=== PATIENT | female | born 1985 | race Caucasian/White ===

== ENCOUNTER 2019-03-13 23:27 | Emergency (ER) | payer MEDICAID ==
[~2019-03-13] VITALS: Ht 137.2 cm; Wt 113.6 kg
[~2019-03-13 23:27] MED LIST: CEPH-571 PO
[2019-03-14] MEDS ORDERED: magnesium 2GM in 50ml NS 50 ML IV ONE
[2019-03-14] MEDS ORDERED: hydrALAZINE 20mg/ml inj. IV ONE ×3 (00:05→02:35)
[2019-03-14 00:54] LABS: URINE HCG POSITIVE (NEG)
[2019-03-14 00:56] LABS: URINE AMPHETAMINE SCREEN POSITIVE (Neg); URINE BARBITUATE SCREEN NEGATIVE (Neg); URINE BENZODIAZEPINES SCREEN NEGATIVE (Neg); URINE CANNABINOID SCREEN NEGATIVE (Neg); URINE COCAINE SCREEN NEGATIVE (Neg); URINE METHADONE SCREEN NEGATIVE (Neg); URINE OPIATE SCREEN NEGATIVE (Neg); URINE PHENCYCLIDINE SCREEN NEGATIVE (Neg)
[2019-03-14 00:59] LABS: ALANINE AMINOTRANSFERASE 21 U/L (12-78); ALBUMIN 2.3 G/DL (3.4-5.0); ALBUMIN/GLOBULIN RATIO 0.6 (1.1-1.5); ALKALINE PHOSPHATASE 207 IU/L (46-116); ANION GAP 10 (8-16); ASPARTATE AMINO TRANSFERASE 29 U/L (10-37); BILIRUBIN,TOTAL 0.6 MG/DL (0.1-1.0); BLOOD UREA NITROGEN 8 MG/DL (7-18); BUN/CREATININE RATIO 12.1 (6.6-38.0); CALCIUM 8.5 MG/DL (8.5-10.1); CHLORIDE 105 MMOL/L (99-107); CREATININE 0.66 MG/DL (0.40-0.90); GLUCOSE 88 MG/DL (70-104); POTASSIUM 3.9 MMOL/L (3.5-5.1); SODIUM 138 MMOL/L (135-145); TOTAL CARBON DIOXIDE 22.7 MMOL/L (24-32); TOTAL PROTEIN 6.4 G/DL (6.4-8.2); eGFR > 90 ML/MIN
[2019-03-14 01:01] LABS: PARTIAL THROMBOPLASTIN TIME 25 SECONDS (22-32)
[2019-03-14 01:03] LABS: CLARITY,URINE CLEAR (Clear); COLOR,URINE AMBER (Yellow); GLUCOSE, URINE NEGATIVE (Neg); KETONES,URINE TRACE mg/dl (Neg); LEUKOCYTE ESTERASE ,URINE NEGATIVE (Neg); NITRITES, URINE NEGATIVE (Neg); OCCULT BLOOD,URINE NEGATIVE (Neg); PROTEIN,URINE 100 mg/dl (Neg)
[2019-03-14 01:04] LABS: BASOPHILS % (AUTO) 0.3 % (0-1); EOSINOPHILS # (AUTO) 0.2 X10'3 (0-0.9); EOSINOPHILS % (AUTO) 1.1 % (0-6); HEMATOCRIT 26.7 % (35.0-45.0); HEMOGLOBIN 8.5 g/dl (12.0-16.0); LYMPHOCYTES # (AUTO) 1.5 X10'3 (1.1-4.8); LYMPHOCYTES % (AUTO) 10.3 % (21-51); MEAN CORPUSCULAR HEMOGLOBIN 19.6 PG (27.0-31.0); MEAN CORPUSCULAR HGB CONC 31.7 g/dL (33.0-36.5); MEAN CORPUSCULAR VOLUME 61.8 FL (78-98); MEAN PLATELET VOLUME 7.4 FL (7.4-10.4); MONOCYTES # (AUTO) 0.5 X10'3 (0-0.9); MONOCYTES % (AUTO) 3.7 % (2-12); NEUTROPHILS # (AUTO) 12.2 X10'3 (1.8-7.7); NEUTROPHILS % (AUTO) 84.6 % (42-75); PLATELET COUNT 361 X10'3 (140-440); RED BLOOD COUNT 4.32 X10'6 (4.20-5.60); RED CELL DISTRIBUTION WIDTH 18.2 % (11.5-14.5); WHITE BLOOD COUNT 14.4 X10'3 (4.5-11.0)
--- NOTE | 2019-03-14 01:20 | NUR ---
2ND PAGE AT 1:21 FOR [facility]
[2019-03-14 01:23] LABS: BETA HCG,QUANTITATIVE 70391 mIU/ml; ETHANOL < 0.010 GM/DL (0.0-0.010)
--- NOTE | 2019-03-14 01:30 | NUR ---
CALLED [facility] TO CALL [facility] DUE TO NO CALL BACK AT 01:31
[2019-03-14 01:36] LABS: UA COLLECTION TYPE CLN CATCH MIDSTREAM
[2019-03-14] MEDS ORDERED: furosemide 10 MG/1 ML 10ml inj IV ONE (01:40)
[2019-03-14 01:41] LABS: BACTERIA,URINE FEW /HPF (Neg); CAL OXALATE CRYSTALS 2+ /HPF (NEGATIVE); MUCUS STRANDS MANY /LPF (Neg); RBC,URINE NONE SEEN /HPF (0-2); SQUAMOUS EPITHELIAL CELL,UR FEW /LPF (FEW); WBC,URINE 0-4 /HPF (0-4)
[2019-03-14] MEDS ORDERED: CefTRIAXone 1000mg IM Kit (w/lidocaine diluent) IM ONE (03:15)
[2019-03-14] MEDS ORDERED: azithromycin/NS 500mg/250ml 250 ML IV ONE (03:15)
--- NOTE | 2019-03-14 04:00 | NUR ---
CALLED [facility] FOR ETA OF TRANSPORT AND WAS GIVEN APROX 1 HOUR
--- NOTE | 2019-03-14 04:13 | NUR ---
CALLED [facility] AND GAVE REPORT TO DAMIR DUMONT. SHE HAD NO FURTHER QUESTIONS AT THIS TIME.
[2019-03-14 04:26] LABS: PLATELET ESTIMATE NORMAL
[2019-03-14 04:27] LABS: ANISOCYTOSIS 2+; MICROCYTOSIS 2+
[2019-03-14 04:29] VITALS: BP 114/102
== END 2019-03-14 04:33 | disposition short-term general hospital (02) ==
LOC: ER 23:28
DX: O99.413 Diseases of the circulatory system complicating pregnancy, third trimester (principal); O99.513 Diseases of the respiratory system complicating pregnancy, third trimester; O99.323 Drug use complicating pregnancy, third trimester; I50.9 Heart failure, unspecified; F15.10 Other stimulant abuse, uncomplicated; Z86.19 Personal history of other infectious and parasitic diseases; Z59.0 Homelessness; Z79.899 Other long term (current) drug therapy; Z3A.29 29 weeks gestation of pregnancy
CPT/HCPCS: 36415; 71045; 76805; 80053; 80305; 80320; 81001; 81025; 83880; 84145; 84484; 84702; 85025; 85610; 85730; 93005; 96365; 96366; 96367; 96372; 96375; 96376; 99285; J0360; J0456; J0696; J1940; J3475; 99284

== ENCOUNTER 2022-10-31 19:59 | Emergency (ER) | payer MEDICAID ==
[~2022-10-31] VITALS: Ht 137.2 cm; Wt 91.0 kg
[2022-10-31] MEDS ORDERED: ketorolac trometh inj. 60 MG/2 ML VIAL IM ONE (22:30)
[2022-10-31] MEDS ORDERED: IBUP-1986 PO (22:34)
[2022-10-31 23:26] VITALS: BP 171/102
== END 2022-10-31 23:30 | disposition home or self-care (01) ==
LOC: ER 20:00
DX: S80.12XA Contusion of left lower leg, initial encounter (principal); F15.10 Other stimulant abuse, uncomplicated; Z59.00 Homelessness unspecified; Z79.899 Other long term (current) drug therapy; X58.XXXA Exposure to other specified factors, initial encounter; Y93.89 Activity, other specified; Y92.89 Other specified places as the place of occurrence of the external cause; Y99.8 Other external cause status
CPT/HCPCS: 73590; 93971; 99284

== ENCOUNTER 2024-07-23 22:56 | Emergency (ER) | payer MEDICAID ==
[~2024-07-23] VITALS: Ht 137.2 cm; Wt 113.6 kg
[~2024-07-23 22:56] MED LIST changes: +IBUP-1986 PO
[2024-07-24] MEDS ORDERED: HYDR-3965 PO (01:06)
[2024-07-24] MEDS: ibuprofen tablet 400 MG TABLET PO ONE (01:42)
[2024-07-24] MEDS: acetaminophen 325mg tablet PO ONE (01:43)
[2024-07-24] MEDS: HYDROcodone/acetaminophen 5mg/325mg tablet PO ONE ×2 (01:58→01:59)
[2024-07-24 02:52] VITALS: BP 165/99; PULSE 96; RESP 16; TEMP 98; O2SAT 98
== END 2024-07-24 03:45 | disposition home or self-care (01) ==
LOC: ER 22:57
DX: S82.891A Other fracture of right lower leg, initial encounter for closed fracture (principal); F15.90 Other stimulant use, unspecified, uncomplicated; Z88.0 Allergy status to penicillin; Z79.1 Long term (current) use of non-steroidal anti-inflammatories (NSAID); Z59.00 Homelessness unspecified; Z72.89 Other problems related to lifestyle; W18.39XA Other fall on same level, initial encounter; Y93.55 Activity, bike riding; Y92.89 Other specified places as the place of occurrence of the external cause; Y99.8 Other external cause status
CPT/HCPCS: 29515; 73610; 99284; A6449

== ENCOUNTER → 2024-08-13 | Day surgery (SDC) | payer MEDICAID ==
[2024-08-11 15:28] LABS: BILIRUBIN,URINE NEGATIVE (Neg); CLARITY,URINE CLEAR (Clear); COLOR,URINE YELLOW (Yellow); GLUCOSE, URINE NEGATIVE (Neg); KETONES,URINE NEGATIVE (Neg); LEUKOCYTE ESTERASE ,URINE NEGATIVE (Neg); NITRITES, URINE NEGATIVE (Neg); OCCULT BLOOD,URINE TRACE-INTACT (Neg); PROTEIN,URINE NEGATIVE (Neg); UROBILINOGEN,URINE 0.2 E.U/dL (0.2-1.0)
[2024-08-11 15:33] LABS: UA COLLECTION TYPE CLN CATCH MIDSTREAM
[2024-08-11 15:35] LABS: BACTERIA,URINE FEW /HPF (Neg); RBC,URINE 0-2 /HPF (0-2); SQUAMOUS EPITHELIAL CELL,UR MODERATE /LPF (FEW); WBC,URINE NONE SEEN /HPF (0-4)
[2024-08-11 15:36] LABS: HCG SERUM QL NEGATIVE
[2024-08-11 15:42] LABS: ALBUMIN 3.6 G/DL (3.4-5.0); ALBUMIN/GLOBULIN RATIO 0.9 (1.1-1.5); ALKALINE PHOSPHATASE 94 IU/L (46-116); BASOPHILS # (AUTO) 0.1 X10'3 (0-0.2); BASOPHILS % (AUTO) 0.7 % (0-1); BLOOD UREA NITROGEN 15 MG/DL (7-18); BUN/CREATININE RATIO 22.4 (10.0-20.0); CALCIUM 8.8 MG/DL (8.5-10.1); CHLORIDE 105 MMOL/L (99-107); CREATININE 0.67 MG/DL (0.40-0.90); EOSINOPHILS # (AUTO) 0.4 X10'3 (0-0.9); EOSINOPHILS % (AUTO) 4.3 % (0-6); LYMPHOCYTES # (AUTO) 2.2 X10'3 (1.1-4.8); LYMPHOCYTES % (AUTO) 20.7 % (21-51); MEAN CORPUSCULAR HEMOGLOBIN 29.6 PG (27.0-31.0); MEAN CORPUSCULAR HGB CONC 35.2 g/dL (33.0-36.5); MEAN PLATELET VOLUME 7.5 FL (7.4-10.4); MONOCYTES # (AUTO) 0.5 X10'3 (0-0.9); MONOCYTES % (AUTO) 4.9 % (2-12); NEUTROPHILS # (AUTO) 7.2 X10'3 (1.8-7.7); NEUTROPHILS % (AUTO) 69.4 % (42-75); PRE OP ALT 27 U/L (30-65); PRE OP ANION GAP 6 (8-16); PRE OP AST 16 U/L (10-37); PRE OP BILIRUB, TOTAL 0.4 MG/DL (0.0-1.0); PRE OP GLUCOSE 71 MG/DL (70-104); PRE OP HEMATOCRIT 40.8 % (35.0-45.0); PRE OP HEMOGLOBIN 14.4 g/dL (12.0-16.0); PRE OP PLATELET COUNT 387 X10'3 (140-440); PRE OP POTASSIUM 3.5 MMOL/L (3.4-5.1); PRE OP SODIUM 144 MMOL/L (135-145); PRE OP WHITE BLOOD COUNT 10.4 10'3 (4.8-10.8); RED BLOOD COUNT 4.86 X10'6 (4.20-5.60); RED CELL DISTRIBUTION WIDTH 14.2 % (11.5-14.5); TOTAL CARBON DIOXIDE 32.6 MMOL/L (24-32); TOTAL PROTEIN 7.5 G/DL (6.4-8.2); eGFR > 90 ML/MIN
[~2024-08-13] VITALS: Ht 149.9 cm; Wt 119.6 kg
[~2024-08-13] MED LIST changes: +ASPI-1397 PO; +BUPIVACAINE liposomal/PF 13.3 MG/ML 10mL vial IM ONE; +BUPIVAcaine 0.5% inj/PF 0 ML ONE; +BUPIVAcaine 2.5mg/ml inj 50ml vial (contains preservative) ONE; +BUPIVAcaine/PF 2.5mg/ml (0.25%) 10ml vial ONE; -CEPH-571 PO; +ERGO500093 PO; +HYDR-3965 PO; -IBUP-1986 PO; +LOSA50TA64 PO; +MIDAZolam 1mg/ml 10ml vial ONE; +NAPR-1168 PO; +bacitracin 15gm ointment TP ONE; +enalaprilat 1.25mg/ml 2ml vial IV PRN; +fentaNYL /PF 50mcg/ml 5ml ampule ONE; +fentaNYL/PF 50MCG/1 ML 2ML syringe IV PRN; +morphine 2 MG/ML inj. syringe IV PRN; +morphine 4 MG/ML inj SYRINge IV PRN; +ondansetron/PF 4mg/2ml inj IV PRN; +ringers solution, lacted 1,000 ML IV SCH; +tetracaine 1% (10mg/ml) pres. free inj. ONE
[2024-08-13] MEDS: famotidine 20mg tablet PO ONE (05:30)
[2024-08-13 09:25] VITALS: BP_SYST 151; BP_DIAS 100; BP_DIAS 110; PULSE 100; RESP 16; TEMP 97.9; O2SAT 99
[2024-08-13] MEDS: ringers solution, lacted 1,000 ML IV SCH (10:11)
[2024-08-13] MEDS: VANCOMYCIN/H2O 1.5g/300mL PB 300 ML IV ONE (10:16)
[2024-08-13 13:00] VITALS: BP 166/106; PULSE 97; RESP 16; O2SAT 100
[2024-08-13 13:10] VITALS: BP 170/107; PULSE 89; RESP 18; O2SAT 100
[2024-08-13] MEDS: labetalol 20mg/4ml (5mg/ml) syringe IV PRN (13:12)
[2024-08-13 13:20] VITALS: BP 161/100; PULSE 92; RESP 18; O2SAT 95
[2024-08-13 13:30] VITALS: BP 170/107; PULSE 90; RESP 19; O2SAT 96
[2024-08-13 13:40] VITALS: BP 164/101; PULSE 87; RESP 18; O2SAT 97
== END | disposition home or self-care (01) ==
LOC: PAS 09:16
PROVIDERS: ATTEND Podiatrist Foot & Ankle Surgery
DX: I11.0 Hypertensive heart disease with heart failure (principal); I50.9 Heart failure, unspecified; I34.0 Nonrheumatic mitral (valve) insufficiency; I49.1 Atrial premature depolarization; E11.9 Type 2 diabetes mellitus without complications; E66.9 Obesity, unspecified; B19.20 Unspecified viral hepatitis C without hepatic coma; F41.9 Anxiety disorder, unspecified; F31.9 Bipolar disorder, unspecified; Z88.0 Allergy status to penicillin; Z98.891 History of uterine scar from previous surgery; Z98.890 Other specified postprocedural states; Z79.899 Other long term (current) drug therapy
CPT/HCPCS: 36415; 80053; 81001; 82948; 84703; 85025; 93005; 93306; J2250; J3010; J3372; J3490; J7120; Z7506; Z7512; A4618; J0666; J3370; J7040

== ENCOUNTER 2024-08-27 12:56 | Day surgery (SDC) | payer MEDICAID ==
[~2024-08-27] VITALS: Ht 149.9 cm; Wt 119.8 kg
[~2024-08-27 12:56] MED LIST changes: -BUPIVACAINE liposomal/PF 13.3 MG/ML 10mL vial IM ONE; -BUPIVAcaine 0.5% inj/PF 0 ML ONE; -BUPIVAcaine 2.5mg/ml inj 50ml vial (contains preservative) ONE; -BUPIVAcaine/PF 2.5mg/ml (0.25%) 10ml vial ONE; -MIDAZolam 1mg/ml 10ml vial ONE; -bacitracin 15gm ointment TP ONE; -enalaprilat 1.25mg/ml 2ml vial IV PRN; -fentaNYL /PF 50mcg/ml 5ml ampule ONE; -fentaNYL/PF 50MCG/1 ML 2ML syringe IV PRN; -morphine 2 MG/ML inj. syringe IV PRN; -morphine 4 MG/ML inj SYRINge IV PRN; -ondansetron/PF 4mg/2ml inj IV PRN; -ringers solution, lacted 1,000 ML IV SCH; -tetracaine 1% (10mg/ml) pres. free inj. ONE
[2024-08-27 13:45] VITALS: BP 159/116; PULSE 115; RESP 16; TEMP 98.5; O2SAT 100
[2024-08-27] MEDS ORDERED: ceFAZolin 2gm in dextrose, iso 50 ML IV ONE (14:19)
[2024-08-27] MEDS: famotidine 20mg tablet PO ONE (14:45)
[2024-08-27] MEDS: ringers solution, lacted 1,000 ML IV SCH (14:45)
[2024-08-27 14:53] LABS: BILIRUBIN,URINE NEGATIVE (Neg); CLARITY,URINE CLEAR (Clear); COLOR,URINE YELLOW (Yellow); GLUCOSE, URINE NEGATIVE (Neg); KETONES,URINE NEGATIVE (Neg); LEUKOCYTE ESTERASE ,URINE NEGATIVE (Neg); NITRITES, URINE NEGATIVE (Neg); OCCULT BLOOD,URINE NEGATIVE (Neg); PH,URINE 7.5 (4.8-8.0); PROTEIN,URINE NEGATIVE (Neg); UROBILINOGEN,URINE 0.2 E.U/dL (0.2-1.0)
[2024-08-27 14:58] LABS: UA COLLECTION TYPE NON-SPECIFIED
[2024-08-27 15:05] LABS: HCG SERUM QL NEGATIVE
[2024-08-27 15:26] LABS: ALANINE AMINOTRANSFERASE 18 U/L (12-78); ALBUMIN 3.5 G/DL (3.4-5.0); ALKALINE PHOSPHATASE 88 IU/L (46-116); ANION GAP 7 (8-16); ASPARTATE AMINO TRANSFERASE 19 U/L (10-37); BASOPHILS % (AUTO) 0.5 % (0-1); BILIRUBIN,TOTAL 0.9 MG/DL (0.1-1.0); BLOOD UREA NITROGEN 12 MG/DL (7-18); BUN/CREATININE RATIO 20.7 (10.0-20.0); CHLORIDE 103 MMOL/L (99-107); CREATININE 0.58 MG/DL (0.40-0.90); EOSINOPHILS # (AUTO) 0.3 X10'3 (0-0.9); EOSINOPHILS % (AUTO) 3.2 % (0-6); GLUCOSE 86 MG/DL (70-104); HEMATOCRIT 44.8 % (35.0-45.0); HEMOGLOBIN 14.9 g/dl (12.0-16.0); LYMPHOCYTES # (AUTO) 1.9 X10'3 (1.1-4.8); LYMPHOCYTES % (AUTO) 21.2 % (21-51); MEAN CORPUSCULAR HEMOGLOBIN 28.8 PG (27.0-31.0); MEAN CORPUSCULAR HGB CONC 33.3 g/dL (33.0-36.5); MEAN CORPUSCULAR VOLUME 86.4 FL (78-98); MEAN PLATELET VOLUME 7.3 FL (7.4-10.4); MONOCYTES # (AUTO) 0.5 X10'3 (0-0.9); NEUTROPHILS # (AUTO) 6.3 X10'3 (1.8-7.7); NEUTROPHILS % (AUTO) 69.1 % (42-75); PLATELET COUNT 288 X10'3 (140-440); POTASSIUM 3.9 MMOL/L (3.5-5.1); RED BLOOD COUNT 5.19 X10'6 (4.20-5.60); SODIUM 138 MMOL/L (135-145); TOTAL CARBON DIOXIDE 27.9 MMOL/L (24-32); TOTAL PROTEIN 7.1 G/DL (6.4-8.2); WHITE BLOOD COUNT 9.1 X10'3 (4.5-11.0); eCRCL 91 ML/MIN; eGFR > 90 ML/MIN
[2024-08-27 15:37] LABS: URINE AMPHETAMINE SCREEN POSITIVE (Neg); URINE BARBITUATE SCREEN NEGATIVE (Neg); URINE BENZODIAZEPINES SCREEN NEGATIVE (Neg); URINE CANNABINOID SCREEN POSITIVE (Neg); URINE COCAINE SCREEN NEGATIVE (Neg); URINE METHADONE SCREEN NEGATIVE (Neg); URINE OPIATE SCREEN NEGATIVE (Neg); URINE PHENCYCLIDINE SCREEN NEGATIVE (Neg)
[2024-08-28] MEDS ORDERED: famotidine 20mg tablet PO ONE (05:30)
[2024-08-28] MEDS ORDERED: ceFAZolin 2gm in dextrose, iso 50 ML IV ONE (05:30)
== END 2024-08-27 17:10 | disposition home or self-care (01) ==
LOC: PAS 12:56
PROVIDERS: ATTEND Podiatrist Foot & Ankle Surgery
DX: S82.899A Other fracture of unspecified lower leg, initial encounter for closed fracture (principal); Z53.8 Procedure and treatment not carried out for other reasons; I11.0 Hypertensive heart disease with heart failure; I50.9 Heart failure, unspecified; M25.471 Effusion, right ankle; Z79.899 Other long term (current) drug therapy; F31.9 Bipolar disorder, unspecified; F41.9 Anxiety disorder, unspecified; F43.10 Post-traumatic stress disorder, unspecified; Y83.8 Other surgical procedures as the cause of abnormal reaction of the patient, or of later complication, without mention of misadventure at the time of the procedure; Z88.6 Allergy status to analgesic agent
CPT/HCPCS: 36415; 80053; 80305; 81003; 82948; 84703; 85025; J7120